=== PATIENT | male | born 1980 | race Caucasian/White ===

== ENCOUNTER 2017-09-06 13:19 | Emergency (ER) | payer BC ==
[~2017-09-06] VITALS: Ht 175.3 cm; Wt 93.0 kg
[~2017-09-06 13:19] MED LIST: CARAFATE 1 GM TA1 GM PO; CEPHALEXIN 500500 M3 PO; DOXYCYCLINE 10100 MG PO; FLEXERIL; FLEXERIL PO; INDOMETHACIN 2525 MG; LISINOPRIL20 MG; LISINOPRIL20 MG PO; NOHOMEMEDICATIONS; NORCO 5-325 TA1 EACH PO; OMEPRAZOLE40 MG PO; PENICILLIN VK500 MG; PEPCID20 MG PO; PERMETHRIN60 GM TOP; PROAIR HFA8.5 GM INH; ULTRAM 50MG TAB50 MG; [UNRECOGNIZED DRUG - REMARK]
[2017-09-06] MEDS ORDERED: ULTRAM 50MG TAB50 MG PO (14:29)
[2017-09-06 14:51] VITALS: BP 120/85
== END 2017-09-06 14:52 | disposition home or self-care (01) ==
LOC: M.ERS 13:19
DX: S46.912A Strain of unspecified muscle, fascia and tendon at shoulder and upper arm level, left arm, initial encounter (principal); I10 Essential (primary) hypertension; Z88.1 Allergy status to other antibiotic agents; X58.XXXA Exposure to other specified factors, initial encounter; Y93.89 Activity, other specified; Y92.89 Other specified places as the place of occurrence of the external cause; Y99.8 Other external cause status

== ENCOUNTER 2018-01-15 04:33 | Emergency (ER) | payer BC ==
[~2018-01-15] VITALS: Ht 177.8 cm; Wt 97.5 kg
[~2018-01-15 04:33] MED LIST changes: +ULTRAM 50MG TAB50 MG PO
[2018-01-15 05:26] LABS: ABSOLUTE BASOPHILS 0.1 thou/uL (0.0-0.2); ABSOLUTE EOSINOPHILS 0.1 thou/uL (0.0-0.7); ABSOLUTE LYMPHOCYTES 1.7 thou/uL (0.8-5.3); ABSOLUTE MONOCYTES 1.2 thou/uL (0.0-1.2); ABSOLUTE NEUTROPHILS 7.1 thou/uL (1.6-8.1); BASOPHILS 0.9 %; EOSINOPHILS 1.1 %; HEMATOCRIT 44.2 % (42.0-52.0); HEMOGLOBIN 15.3 gm/dL (14.0-18.0); LYMPHOCYTES 16.6 %; MCHC 34.7 g/dL (28.0-37.0); MCV 92.2 fL (80.0-100.0); MONOCYTES 11.8 %; MPV 7.5 fl. (7.2-11.1); NUCLEATED RBCS 0 /100WBC; PLATELET COUNT* 186 thou/uL (150-400); POLYS 69.6 %; RBC 4.79 mil/uL (4.50-6.00); RDW-CV 13.2 % (10.5-14.5); WBC 10.2 thou/uL (4.0-11.0)
[2018-01-15 05:38] LABS: ANION GAP 8 mmol/L (7-16); BUN 12 mg/dL (7-18); CALCIUM 8.2 mg/dL (8.5-10.1); CHLORIDE 102 mmol/L (98-107); CO2 27 mmol/L (21-32); CREATININE 0.8 mg/dL (0.6-1.3); GLUCOSE 106 mg/dL (70-99); SODIUM 137 mmol/L (136-145)
[2018-01-15 05:45] LABS: ALBUMIN 3.3 g/dL (3.4-5.0); ALKALINE PHOSPHATASE 67 U/L (46-116); SGOT 14 U/L (15-37); SGPT 22 U/L (30-65); TOTAL BILIRUBIN 0.6 mg/dL (<0.1-1.0); TOTAL PROTEIN 6.5 g/dL (6.4-8.2); TROPONIN-I LEVEL <0.06 ng/mL (<0.06)
[2018-01-15] MEDS ORDERED: NAPROSYN500 MG PO (06:11)
[2018-01-15] MEDS ORDERED: ULTRAM 50MG TAB50 MG PO (06:11)
[2018-01-15 06:14] VITALS: BP 121/69
--- NOTE | 2018-01-15 13:22 | EKG ---
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
== END 2018-01-15 06:21 | disposition home or self-care (01) ==
LOC: M.ERS 04:33
PROVIDERS: Personal Emergency Response Attendant
DX: M94.0 Chondrocostal junction syndrome [Tietze] (principal); I10 Essential (primary) hypertension; Z88.1 Allergy status to other antibiotic agents

== ENCOUNTER 2018-02-12 00:44 | Emergency (ER) | payer OTHER ==
[~2018-02-12] VITALS: Ht 177.8 cm; Wt 97.5 kg
[~2018-02-12 00:44] MED LIST changes: +NAPROSYN500 MG PO
[2018-02-12 01:41] LABS: HEMOGLOBIN 16.7 gm/dL (14.0-18.0); MCH 31.7 pg (26.0-34.0); WBC 8.9 thou/uL (4.0-11.0)
[2018-02-12 01:42] LABS: ABSOLUTE BASOPHILS 0.1 thou/uL (0.0-0.2); ABSOLUTE MONOCYTES 0.8 thou/uL (0.0-1.2); ABSOLUTE NEUTROPHILS 5.9 thou/uL (1.6-8.1); BASOPHILS 0.9 %; EOSINOPHILS 0.5 %; HEMATOCRIT 47.8 % (42.0-52.0); LYMPHOCYTES 22.8 %; MCHC 34.9 g/dL (28.0-37.0); MCV 90.9 fL (80.0-100.0); MONOCYTES 9.1 %; MPV 7.1 fl. (7.2-11.1); NUCLEATED RBCS 0 /100WBC; PLATELET COUNT* 193 thou/uL (150-400); POLYS 66.7 %; RBC 5.26 mil/uL (4.50-6.00); RDW-CV 13.4 % (10.5-14.5)
[2018-02-12 01:58] LABS: ANION GAP 13 mmol/L (7-16); BUN 7 mg/dL (7-18); CALCIUM 8.6 mg/dL (8.5-10.1); CHLORIDE 100 mmol/L (98-107); CO2 26 mmol/L (21-32); CREATININE 0.8 mg/dL (0.6-1.3); GLUCOSE 100 mg/dL (70-99); POTASSIUM 3.5 mmol/L (3.5-5.1); SODIUM 139 mmol/L (136-145)
[2018-02-12] MEDS ORDERED: GEODON20 MG PO (02:00)
[2018-02-12] MEDS ORDERED: PHENERGAN 25 MG25 M1 PO (02:00)
[2018-02-12 02:05] VITALS: BP 155/94
[2018-02-12 02:06] LABS: ALKALINE PHOSPHATASE 71 U/L (46-116); SGOT 26 U/L (15-37); SGPT 45 U/L (30-65); TOTAL BILIRUBIN 0.6 mg/dL (<0.1-1.0); TOTAL PROTEIN 7.8 g/dL (6.4-8.2); TROPONIN-I LEVEL <0.06 ng/mL (<0.06)
--- NOTE | 2018-02-12 14:32 | EKG ---
[place] [address] ELECTROCARDIOGRAM REPORT Name: ELAINE CRUZ Room: 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
== END 2018-02-12 02:06 | disposition home or self-care (01) ==
LOC: M.ERS 00:44
PROVIDERS: Personal Emergency Response Attendant
DX: F19.10 Other psychoactive substance abuse, uncomplicated (principal); G47.00 Insomnia, unspecified; I10 Essential (primary) hypertension; F10.99 Alcohol use, unspecified with unspecified alcohol-induced disorder; F14.10 Cocaine abuse, uncomplicated; F17.210 Nicotine dependence, cigarettes, uncomplicated; Z88.1 Allergy status to other antibiotic agents

== ENCOUNTER 2018-05-14 20:11 | Emergency (ER) | payer OTHER ==
[~2018-05-14] VITALS: Ht 177.8 cm; Wt 99.8 kg
[~2018-05-14 20:11] MED LIST changes: +GEODON20 MG PO; +PHENERGAN 25 MG25 M1 PO
[2018-05-14 20:28] LABS: URINE BILIRUBIN NEGATIVE (Negative); URINE BLOOD NEGATIVE (Negative); URINE CLARITY CLEAR; URINE COLOR YELLOW; URINE GLUCOSE-RANDOM NEGATIVE (Negative); URINE KETONES NEGATIVE (Negative); URINE LEUKOCYTES-REFLEX NEGATIVE (Negative); URINE NITRITE-REFLEX NEGATIVE (Negative); URINE PROTEIN NEGATIVE (Negative); URINE SPECIFIC GRAVITY 1.025 (1.005-1.030); URINE UROBILINOGEN 0.2 E.U./dl (0.2-1.0)
[2018-05-14] MEDS ORDERED: NAPROSYN500 MG PO (21:02)
[2018-05-14] MEDS ORDERED: ROBAXIN 750 MG750 M1 PO (21:02)
[2018-05-14] MEDS ORDERED: TRAMADOL 50 MG50 MG PO (21:02)
[2018-05-14 21:16] VITALS: BP 139/89
== END 2018-05-14 21:17 | disposition home or self-care (01) ==
LOC: M.ERS 20:11
PROVIDERS: Nurse Practitioner Family
DX: R07.81 Pleurodynia (principal); I10 Essential (primary) hypertension; M41.9 Scoliosis, unspecified; F17.210 Nicotine dependence, cigarettes, uncomplicated; Z88.1 Allergy status to other antibiotic agents

== ENCOUNTER 2019-04-18 20:49 | Emergency (ER) | payer OTHER ==
[~2019-04-18] VITALS: Ht 177.8 cm; Wt 106.6 kg
[~2019-04-18 20:49] MED LIST changes: +ROBAXIN 750 MG750 M1 PO; +TRAMADOL 50 MG50 MG PO
[2019-04-18 20:53] VITALS: BP 140/91
== END 2019-04-18 21:20 | disposition home or self-care (01) ==
LOC: M.ERS 20:49
DX: I10 Essential (primary) hypertension (principal); F17.210 Nicotine dependence, cigarettes, uncomplicated; M41.9 Scoliosis, unspecified; Z88.1 Allergy status to other antibiotic agents

== ENCOUNTER 2019-05-21 17:59 | Emergency (ER) | payer OTHER ==
[~2019-05-21] VITALS: Ht 177.8 cm; Wt 104.3 kg
[2019-05-21] MEDS ORDERED: LIDODERM1 EACH TRANSDERM (19:02)
[2019-05-21] MEDS ORDERED: MEDROLDOSEPACK PO (19:02)
[2019-05-21] MEDS ORDERED: NORCO 5-325 TA1 EAC1 PO (19:02)
[2019-05-21 19:20] VITALS: BP 145/87
== END 2019-05-21 19:20 | disposition home or self-care (01) ==
LOC: M.ERS 17:59
DX: M54.5 Low back pain (principal); I10 Essential (primary) hypertension; M41.9 Scoliosis, unspecified; F17.210 Nicotine dependence, cigarettes, uncomplicated; Z88.1 Allergy status to other antibiotic agents